=== PATIENT | female | born 1955 | race Caucasian/White ===

== ENCOUNTER → 2017-06-14 | Outpatient (CLI) | payer MEDICARE, MEDICAID ==
[~2017-06-14] MED LIST: ALPR-392 PO; ASPI-986 PO; CARV25TA47 PO; CINA30 PO; CLON0.1T PO; CLON0.2T PO; CLOP75TA33 PO; DILT120C2 PO; HYDR100T26 PO; INSU3INS8 SQ; LEVVL SQ; LOSA50TA20 PO; Lisinopril PO; NIFE60TA64 PO; OMEP20TA2 PO; ONDA4TAB5 PO; ROSU5TAB PO; SEVE800T8 PO
== END | disposition home or self-care (01) ==
LOC: RAD 12:05
PROVIDERS: ATTEND Podiatrist Foot & Ankle Surgery
DX: M85.872 Other specified disorders of bone density and structure, left ankle and foot (principal); M85.871 Other specified disorders of bone density and structure, right ankle and foot; M79.89 Other specified soft tissue disorders
CPT/HCPCS: 73610; 73630

== ENCOUNTER → 2019-05-27 | Outpatient (CLI) | payer MEDICARE, MEDICAID ==
[~2019-05-27] MED LIST changes: +DILT-26 PO; -DILT120C2 PO; -LOSA50TA20 PO; +LOSA50TA41 PO
== END | disposition home or self-care (01) ==
LOC: RAD 15:09
DX: M17.0 Bilateral primary osteoarthritis of knee (principal)
CPT/HCPCS: 73565